=== PATIENT | female | born 1970 | race Caucasian/White ===

== ENCOUNTER 2021-03-29 21:40 | Emergency (ER) | payer MEDICAID ==
[~2021-03-29] VITALS: Ht 152.4 cm; Wt 74.8 kg
[2021-03-29 21:45] VITALS: BP 146/84
--- NOTE | 2021-03-29 21:52 | NUR ---
PATIENT AMBULATED TO THE BATHROOM FOR URINE COLLECTION
--- NOTE | 2021-03-29 21:54 | NUR ---
PATIENT AMUBLATED TO BED 1
--- NOTE | 2021-03-29 22:00 | NUR ---
PATIENT REPORTS PAIN TO PUBIC REGION ONSET YESTERDAY, CAME INTO ED BECUSE SHE NOTICED BLOOD IN THE URINE TODAY. NO FURTHER COMPLAINTS OF NOW, DENIES NAUSEA AND VOMITING. PMHX: NONE NKA NO MEDS
--- NOTE | 2021-03-29 22:22 | NUR ---
Dr. Brantley examining patient.
[2021-03-29] MEDS ORDERED: PHEN-1877 PO (22:24)
[2021-03-29] MEDS ORDERED: NITR100C7 PO (22:24)
[2021-03-29] MEDS: NITROFURANTOIN 100 MG CAP PO ONE (22:41)
[2021-03-29 22:42] VITALS: BP 129/66
--- NOTE | 2021-03-29 22:42 | NUR ---
CLEARED FOR DISCHARGE AT THIS TIME. NO FURTHER QUESTIONS OR CONCERNS FOLLWOING DISCHARGE TEACHIG,
== END 2021-03-29 22:42 | disposition home or self-care (01) ==
LOC: MED 21:40
DX: N39.0 Urinary tract infection, site not specified (principal); Z79.899 Other long term (current) drug therapy
CPT/HCPCS: 81002; 96372; 99283

== ENCOUNTER 2021-06-14 14:42 | Emergency (ER) | payer MEDICAID ==
[~2021-06-14] VITALS: Ht 152.4 cm; Wt 73.5 kg
[~2021-06-14 14:42] MED LIST: NITR100C7 PO; PHEN-1877 PO
[2021-06-14 15:01] VITALS: BP 144/74
[2021-06-14] MEDS ORDERED: PYR100 PO (15:44)
[2021-06-14] MEDS ORDERED: ACET-10509 PO (15:44)
[2021-06-14] MEDS ORDERED: CEPH-588 PO (15:44)
--- NOTE | 2021-06-14 16:19 | NUR ---
PT SEEN AND TREATED BY MERISSA LUZ, NO NURSING INTERVENTIONS PROVIDED
--- NOTE | 2021-06-14 16:20 | NUR ---
Patient discharged with v/s stable. Written and verbal after care instructions ABOUT URINARY TRACT INFECTION given and explained. Patient alert, oriented and verbalized understanding of instructions. Ambulatory with steady gait. All questions addressed prior to discharge. ID band removed. Patient advised to follow up with PMD. Rx of TYLENOL EXTRA STRENGTH, KEFLEX, AND PYRIDIUM given. Patient educated on indication of medication including possible reaction and side effects. Opportunity to ask questions provided and answered.
== END 2021-06-14 16:20 | disposition home or self-care (01) ==
LOC: MED 14:42
DX: N39.0 Urinary tract infection, site not specified (principal); Z79.899 Other long term (current) drug therapy
CPT/HCPCS: 81002; 81025; 87086; 99283

== ENCOUNTER 2021-12-09 11:16 | Emergency (ER) | payer MEDICAID ==
[~2021-12-09] VITALS: Ht 154.9 cm; Wt 74.0 kg
[~2021-12-09 11:16] MED LIST changes: +ACET-10509 PO; +CEPH-588 PO; +PYR100 PO
[2021-12-09 11:17] VITALS: BP 112/70
--- NOTE | 2021-12-09 11:29 | NUR ---
walked in c/o r shoulder pain onset 1 mo. denies injury or fall. unk cause, states 8 pain. vitals stable, aaox4, ambulatory.
[2021-12-09] MEDS ORDERED: KETOROLAC 60 MG/2 ML VIAL IM ONE (11:30)
--- NOTE | 2021-12-09 11:36 | NUR ---
pt went for xr
--- NOTE | 2021-12-09 11:45 | NUR ---
pt back from xr
[2021-12-09 11:55] VITALS: BP 116/75
--- NOTE | 2021-12-09 11:55 | NUR ---
PT STATES PAIN DECREASED TO 5/10. ERMD AWARE
[2021-12-09] MEDS ORDERED: NAPR-54 PO (12:07)
== END 2021-12-09 12:40 | disposition home or self-care (01) ==
LOC: MED 11:16
DX: S43.401A Unspecified sprain of right shoulder joint, initial encounter (principal); X58.XXXA Exposure to other specified factors, initial encounter; Y93.89 Activity, other specified; Y92.89 Other specified places as the place of occurrence of the external cause; Y99.8 Other external cause status
CPT/HCPCS: 73030; 96372; 99283; J1885

== ENCOUNTER 2022-11-03 07:56 | Emergency (ER) | payer MEDICAID, OTHER ==
[~2022-11-03] VITALS: Ht 154.9 cm; Wt 77.7 kg
[~2022-11-03 07:56] MED LIST changes: +NAPR-54 PO
[2022-11-03 08:20] VITALS: BP 132/71
[2022-11-03] MEDS ORDERED: KETOROLAC 15 MG/ML VIAL IM ONE (08:50)
[2022-11-03] MEDS ORDERED: IBUP-2213 PO (08:51)
--- NOTE | 2022-11-03 08:53 | NUR ---
PT C/O RT EAR PAIN X 2 DAYS, RADIATING TO RT SHOULDER X 1 DAY. TAKING ASPIRIN AT HOME W/NO RELIEF. NAD.
[2022-11-03 09:33] VITALS: BP 128/69
--- NOTE | 2022-11-03 09:35 | NUR ---
Patient discharged with v/s stable. Written and verbal after care instructions given. Patient alert, oriented and verbalized understanding of instructions. Ambulatory with steady gait. All questions addressed prior to discharge. ID band removed. Patient advised to follow up with PMD. Rx of IBUPROFEN 600MG given. Patient educated on indication of medication including possible reaction and side effects. Opportunity to ask questions provided and answered.
--- NOTE | 2022-11-03 10:28 | NUR ---
The patient's care was reviewed and supervised by ROYA TRUONG RN.
== END 2022-11-03 09:33 | disposition home or self-care (01) ==
LOC: MED 07:56
DX: H92.01 Otalgia, right ear (principal); Z79.899 Other long term (current) drug therapy
CPT/HCPCS: 99282; J1885